=== PATIENT | male | born 1985 | race Caucasian/White ===

== ENCOUNTER 2017-01-21 23:16 | Emergency (ER) | payer OTHER ==
[~2017-01-21] VITALS: Ht 175.3 cm; Wt 88.6 kg
[2017-01-21 23:18] VITALS: TEMP 99.1
[2017-01-22] MEDS ORDERED: ULTRAM 50MG TAB50 MG PO (00:04)
[2017-01-22 00:06] VITALS: BP 142/78; PULSE 81
== END 2017-01-22 00:27 | disposition home or self-care (01) ==
LOC: COL.ER 23:16
DX: S20.211A Contusion of right front wall of thorax, initial encounter (principal); S80.212A Abrasion, left knee, initial encounter; V43.52XA Car driver injured in collision with other type car in traffic accident, initial encounter; Y92.410 Unspecified street and highway as the place of occurrence of the external cause